=== PATIENT | male | born 1960 | race Two or more races ===

== ENCOUNTER 2020-03-05 15:28 | Emergency (ER) | payer MEDICARE, OTHER ==
[~2020-03-05] VITALS: Ht 165.1 cm; Wt 85.0 kg
[2020-03-05] MEDS ORDERED: LABETALOL HCL 20MG/4ML CARPUJECT IV ONE (16:15)
[2020-03-05] MEDS ORDERED: LABETALOL 5MG/ML SYR 20 MG/4 ML SYRINGE IV NR (16:30)
[2020-03-05 16:34] LABS: BASOPHILS % 0.8 % (0.0-2.0); EOSINOPHILS % 3.9 % (0.0-5.0); HEMATOCRIT. 33.2 % (42.0-52.0); HEMOGLOBIN. 11.7 g/dL (14.0-18.0); LYMPHOCYTES % 24.6 % (20.0-50.0); MEAN CORPUSCULAR HEMOGLOBIN 30.6 pg (28.0-32.0); MEAN CORPUSCULAR VOLUME 86.8 fL (80.0-94.0); MEAN PLATELET VOLUME 8.2 fl (7.4-10.4); NEUTROPHILS % 60.7 % (40.0-76.0); PLATELET 231 x1000/uL (130-400); RED BLOOD CELL COUNT 3.83 mill/uL (4.7-6.1); RED CELL DISTRIBUTION WIDTH 14.2 % (11.6-14.6)
[2020-03-05 16:37] LABS: CHLORIDE 101 mEq/L (98-107)
[2020-03-05] MEDS ORDERED: LABETALOL HCL 100MG TABLET PO ONE (17:15)
[2020-03-05 17:32] VITALS: BP 168/78
== END 2020-03-05 17:34 | disposition home or self-care (01) ==
LOC: ER 15:28
DX: I16.0 Hypertensive urgency (principal); I12.0 Hypertensive chronic kidney disease with stage 5 chronic kidney disease or end stage renal disease; N18.6 End stage renal disease; Z99.2 Dependence on renal dialysis; Z89.511 Acquired absence of right leg below knee; Z98.890 Other specified postprocedural states
CPT/HCPCS: 36415; 80053; 83880; 84484; 85025; 93005; 96374; 99284; J3490

== ENCOUNTER 2021-04-02 22:53 | Emergency (ER) | payer MEDICARE, OTHER ==
[~2021-04-02] VITALS: Ht 165.1 cm; Wt 85.0 kg
[2021-04-02 23:37] VITALS: BP 107/48
== END 2021-04-03 03:08 | disposition left against medical advice (07) ==
LOC: ER 22:53
DX: R50.9 Fever, unspecified (principal); Z53.21 Procedure and treatment not carried out due to patient leaving prior to being seen by health care provider

== ENCOUNTER 2021-05-22 23:21 | Emergency (ER) | payer BC, OTHER ==
[~2021-05-22] VITALS: Ht 165.1 cm; Wt 85.0 kg
[2021-05-23 03:01] VITALS: BP 136/68
== END 2021-05-23 03:04 | disposition home or self-care (01) ==
LOC: ER 23:21
DX: I10 Essential (primary) hypertension (principal); E11.9 Type 2 diabetes mellitus without complications; N28.9 Disorder of kidney and ureter, unspecified
CPT/HCPCS: 82962; 99283

== ENCOUNTER 2021-11-01 14:32 | Emergency (ER) | payer MEDICARE, BC ==
[~2021-11-01] VITALS: Ht 175.3 cm; Wt 77.0 kg
[2021-11-01 15:50] LABS: BASOPHILS % 0.5 % (0.0-2.0); EOSINOPHILS % 2.3 % (0.0-5.0); HEMATOCRIT. 30.3 % (42.0-52.0); HEMOGLOBIN. 10.7 g/dL (14.0-18.0); LYMPHOCYTES % 14.2 % (20.0-50.0); MEAN CORPUSCULAR HEMOGLOBIN 31.3 pg (28.0-32.0); MEAN CORPUSCULAR VOLUME 88.9 fL (80.0-94.0); MEAN PLATELET VOLUME 7.2 fl (7.4-10.4); MONOCYTES % 8.9 % (2.0-8.0); NEUTROPHILS % 74.1 % (40.0-76.0); PLATELET 251 x1000/uL (130-400); RED CELL DISTRIBUTION WIDTH 14.7 % (11.6-14.6)
[2021-11-01 16:00] LABS: CHLORIDE 105 mEq/L (98-107)
[2021-11-01 18:14] LABS: CLARITY URINE CLEAR (CLEAR); COLOR URINE YELLOW (YELLOW); KETONES URINE NEGATIVE (NEGATIVE); LEUKOCYTE ESTERASE URINE NEGATIVE (NEGATIVE); NITRITE URINE NEGATIVE (NEGATIVE); OCCULT BLOOD URINE NEGATIVE (NEGATIVE); PROTEIN URINE 2+ (NEGATIVE); SPECIFIC GRAVITY URINE 1.013 (1.005-1.030); UROBILINOGEN URINE 0.2 E.U./dL (0.2-1.0)
[2021-11-01 19:10] VITALS: BP 139/71
== END 2021-11-01 19:11 | disposition home or self-care (01) ==
LOC: ER 14:32
DX: R53.1 Weakness (principal); I12.0 Hypertensive chronic kidney disease with stage 5 chronic kidney disease or end stage renal disease; E11.22 Type 2 diabetes mellitus with diabetic chronic kidney disease; N18.6 End stage renal disease; Z99.2 Dependence on renal dialysis; Z89.9 Acquired absence of limb, unspecified
CPT/HCPCS: 36415; 71045; 80053; 81003; 83880; 84484; 85025; 93005; 99285

== ENCOUNTER 2022-01-15 12:48 | Emergency (ER) | payer MEDICARE, OTHER ==
[~2022-01-15] VITALS: Ht 177.8 cm; Wt 85.0 kg
[2022-01-15 13:14] VITALS: BP 161/76
[2022-01-15] MEDS ORDERED: ACETAMINOPHEN 325MG TABLET PO ONE (13:15)
[2022-01-15] MEDS ORDERED: MECLIZINE 25MG TABLET PO ONE (13:15)
[2022-01-15 14:00] LABS: BASOPHILS % 0.5 % (0.0-2.0); EOSINOPHILS % 2.5 % (0.0-5.0); HEMATOCRIT. 33.7 % (42.0-52.0); HEMOGLOBIN. 11.5 g/dL (14.0-18.0); LYMPHOCYTES % 16.9 % (20.0-50.0); MEAN CORPUSCULAR HEMOGLOBIN 30.1 pg (28.0-32.0); MEAN CORPUSCULAR VOLUME 87.9 fL (80.0-94.0); MEAN PLATELET VOLUME 8.1 fl (7.4-10.4); MONOCYTES % 8.4 % (2.0-8.0); NEUTROPHILS % 71.7 % (40.0-76.0); PLATELET 255 x1000/uL (130-400); RED BLOOD CELL COUNT 3.83 mill/uL (4.7-6.1); RED CELL DISTRIBUTION WIDTH 13.7 % (11.6-14.6)
[2022-01-15 14:06] LABS: CHLORIDE 99 mEq/L (98-107)
[2022-01-15] MEDS ORDERED: MECL-159 MT (15:02)
== END 2022-01-15 15:20 | disposition home or self-care (01) ==
LOC: ER 12:48 → SUPCPDRO 16:11
DX: R55 Syncope and collapse (principal); R42 Dizziness and giddiness; D64.9 Anemia, unspecified; E11.9 Type 2 diabetes mellitus without complications; I10 Essential (primary) hypertension; Z98.890 Other specified postprocedural states
CPT/HCPCS: 36415; 70450; 71045; 80053; 83880; 84484; 85025; 93005; 99285; J8597

== ENCOUNTER 2022-03-28 13:12 | Emergency (ER) | payer MEDICARE ==
[~2022-03-28] VITALS: Ht 167.6 cm; Wt 75.0 kg
[~2022-03-28 13:12] MED LIST: MECL-159 MT
[2022-03-28 13:24] VITALS: BP 188/95
== END 2022-03-28 18:22 | disposition left against medical advice (07) ==
LOC: ER 13:12
DX: Z53.21 Procedure and treatment not carried out due to patient leaving prior to being seen by health care provider (principal); I12.0 Hypertensive chronic kidney disease with stage 5 chronic kidney disease or end stage renal disease; E11.22 Type 2 diabetes mellitus with diabetic chronic kidney disease; N18.6 End stage renal disease; Z99.2 Dependence on renal dialysis; Z89.9 Acquired absence of limb, unspecified

== ENCOUNTER 2023-08-06 11:32 | Emergency (ER) | payer MEDICARE ==
[~2023-08-06] VITALS: Ht 172.7 cm; Wt 73.0 kg
[~2023-08-06 11:32] MED LIST changes: -MECL-159 MT; +MECL-299 MT
[2023-08-06 11:51] VITALS: O2SAT 100
[2023-08-06] MEDS ORDERED: LIDOCAINE HCL/PF 1% 10 MG/ML 5ML VIAL INFIL ONE (13:00)
[2023-08-06 16:02] VITALS: BP 214/93; PULSE 69; RESP 19; TEMP 98.1
== END 2023-08-06 16:06 | disposition home or self-care (01) ==
LOC: ER 11:37
DX: T82.838A Hemorrhage due to vascular prosthetic devices, implants and grafts, initial encounter (principal)
CPT/HCPCS: 99283; J3490

== ENCOUNTER 2024-04-22 09:29 | Inpatient (IN) | payer MEDICARE, OTHER ==
[~2024-04-22] VITALS: Ht 165.1 cm; Wt 80.3 kg
[2024-04-22 10:17] LABS: BASOPHILS % 0.4 % (0.0-2.0); EOSINOPHILS % 1.9 % (0.0-5.0); HEMATOCRIT. 33.6 % (42.0-52.0); HEMOGLOBIN. 11.2 g/dL (14.0-18.0); LYMPHOCYTES % 11.5 % (20.0-50.0); MEAN CORPUSCULAR HEMOGLOBIN 29.9 pg (28.0-32.0); MEAN CORPUSCULAR HGB CONC 33.4 g/dL (31.0-37.0); MEAN CORPUSCULAR VOLUME 89.5 fL (80.0-94.0); MEAN PLATELET VOLUME 7.8 fl (7.4-10.4); MONOCYTES % 9.2 % (2.0-8.0); PLATELET 209 x1000/uL (130-400); RED BLOOD CELL COUNT 3.75 mill/uL (4.7-6.1); RED CELL DISTRIBUTION WIDTH 15.8 % (11.6-14.6); WHITE BLOOD COUNT 7.5 x1000/uL (4.5-11.0)
[2024-04-22 10:27] LABS: CHLORIDE 105 mEq/L (98-107); POTASSIUM 3.7 mEq/L (3.5-5.1); SODIUM 142 mEq/L (136-145)
[2024-04-22 10:28] LABS: CALCIUM 9.5 mg/dL (8.7-10.4); CARBON DIOXIDE 29 mEq/L (21-32)
[2024-04-22 10:33] LABS: CREATININE 3.2 mg/dL (0.6-1.3); GLUCOSE 184 mg/dL (70-105); UREA NITROGEN BLOOD 14 mg/dL (9-23)
[2024-04-22 11:50] LABS: TROPONIN I HIGH SENSITIVITY 13 ng/L (3.0-53)
[2024-04-22] MEDS ORDERED: ATEN50TA PO (12:14)
[2024-04-22] MEDS ORDERED: NIFE-32 PO (12:14)
[2024-04-22] MEDS ORDERED: PRAV40TA58 PO (12:14)
[2024-04-22] MEDS ORDERED: MAGNESIUM/ALUMINUM HYDROXIDE/SIMETHICONE 30ML UDC PO PRN (12:15)
[2024-04-22] MEDS ORDERED: IPRATROPIUM/ALBUTEROL 0.5-3(2.5)MG/3ML NEB HHN PRN (12:15)
[2024-04-22] MEDS ORDERED: GUAIFENESIN 200MG/10ML SUGAR FREE UDC PO PRN (12:15)
[2024-04-22] MEDS ORDERED: ACETAMINOPHEN 325MG TABLET PO PRN (12:15)
[2024-04-22] MEDS ORDERED: ONDANSETRON HCL 4MG/2ML INJ IV PRN (12:15)
[2024-04-22] MEDS: NIFEDIPINE XL 60MG TAB PO SCH (13:10)
[2024-04-22] MEDS: ATENOLOL 50 MG TABLET PO SCH (13:11)
[2024-04-22] MEDS ORDERED: DEXTROSE 50% WATER 50ML SYRINGE IV PRN (14:00)
[2024-04-22] MEDS: BLOOD SUGAR DIAGNOSTIC STRIP TEST SCH (17:00)
[2024-04-22] MEDS: INSULIN LISPRO 100 UNITS/ML SUBCUT SCH (18:20)
[2024-04-22] MEDS: ATORVASTATIN CALCIUM 40MG TABLET PO SCH (21:00)
[2024-04-22 23:00] VITALS: BP 132/67; PULSE 74; RESP 18; TEMP 37.0296
[2024-04-23 07:49] LABS: BASOPHILS % 0.5 % (0.0-2.0); EOSINOPHILS % 3.1 % (0.0-5.0); HEMATOCRIT. 32.5 % (42.0-52.0); HEMOGLOBIN. 11.2 g/dL (14.0-18.0); LYMPHOCYTES % 20.4 % (20.0-50.0); MEAN CORPUSCULAR HEMOGLOBIN 30.9 pg (28.0-32.0); MEAN CORPUSCULAR HGB CONC 34.6 g/dL (31.0-37.0); MEAN CORPUSCULAR VOLUME 89.2 fL (80.0-94.0); MEAN PLATELET VOLUME 8.1 fl (7.4-10.4); MONOCYTES % 9.4 % (2.0-8.0); NEUTROPHILS % 66.6 % (40.0-76.0); PLATELET 238 x1000/uL (130-400); RED BLOOD CELL COUNT 3.64 mill/uL (4.7-6.1); RED CELL DISTRIBUTION WIDTH 16.1 % (11.6-14.6); WHITE BLOOD COUNT 7.7 x1000/uL (4.5-11.0)
[2024-04-23 08:00] VITALS: BP 163/71; PULSE 68; RESP 16; TEMP 36.61404; O2SAT 97
[2024-04-23 08:04] LABS: CALCIUM 9.5 mg/dL (8.7-10.4); POTASSIUM 4.2 mEq/L (3.5-5.1)
[2024-04-23 08:08] LABS: T4 FREE 1.46 ng/dL (0.89-1.76); THYROID STIMULATING HORMONE 1.94 uIU/mL (0.55-4.78)
[2024-04-23 08:09] LABS: ALBUMIN 4.4 g/dL (3.2-4.8)
[2024-04-23 08:23] LABS: CREATININE 5.5 mg/dL (0.6-1.3)
[2024-04-23] MEDS: DOCUSATE SODIUM 100MG CAPSULE PO PRN (10:17)
[2024-04-23 12:00] VITALS: BP 122/65; PULSE 80; RESP 17; TEMP 36.61404; O2SAT 98
[2024-04-23 12:29] LABS: ALANINE AMINOTRANSFERASE 14 IU/L (10-49); ALBUMIN 4.5 g/dL (3.2-4.8); ASPARTATE AMINOTRANSFERASE 21 IU/L (<34); BILIRUBIN TOTAL 0.3 mg/dL (0.1-1.0); PROTEIN TOTAL 7.4 g/dL (6.0-8.3)
[2024-04-23 12:39] LABS: BILIRUBIN DIRECT < 0.1 mg/dL (<=3.0)
[2024-04-23 12:40] LABS: HEPATITIS B SURFACE ANTIGEN NEGATIVE (Negative)
[2024-04-23 13:00] LABS: HEPATITIS A AB IGM NEGATIVE (Negative)
[2024-04-23 13:01] LABS: HEPATITIS B CORE AB IGM NEGATIVE (Negative); HEPATITIS C AB NON REACTIVE (Neg) (Negative)
[2024-04-23 20:00] VITALS: BP 142/68; PULSE 68; TEMP 36.44736; O2SAT 98
[2024-04-23 21:02] LABS: PHOSPHORUS 3.5 mg/dL (2.5-4.9)
[2024-04-24] VITALS (14 sets, daily range): BP systolic 139–178; BP diastolic 59–90; PULSE 55–90; RESP 16–20; TEMP 36.3918–36.89184; O2SAT 96–100
[2024-04-24] MEDS: CLONIDINE 0.1MG TABLET PO PRN (00:21)
[2024-04-24 06:44] LABS: BASOPHILS % 0.5 % (0.0-2.0); HEMATOCRIT. 31.6 % (42.0-52.0); HEMOGLOBIN. 10.6 g/dL (14.0-18.0); LYMPHOCYTES % 23.6 % (20.0-50.0); MEAN CORPUSCULAR HEMOGLOBIN 30.1 pg (28.0-32.0); MEAN CORPUSCULAR HGB CONC 33.6 g/dL (31.0-37.0); MEAN CORPUSCULAR VOLUME 89.6 fL (80.0-94.0); MEAN PLATELET VOLUME 8.2 fl (7.4-10.4); MONOCYTES % 9.7 % (2.0-8.0); NEUTROPHILS % 63.2 % (40.0-76.0); PLATELET 227 x1000/uL (130-400); RED BLOOD CELL COUNT 3.53 mill/uL (4.7-6.1); RED CELL DISTRIBUTION WIDTH 15.7 % (11.6-14.6); WHITE BLOOD COUNT 8.6 x1000/uL (4.5-11.0)
[2024-04-24 06:47] LABS: POTASSIUM 5.3 mEq/L (3.5-5.1)
[2024-04-24 06:48] LABS: CALCIUM 9.2 mg/dL (8.7-10.4)
[2024-04-24 06:58] LABS: CREATININE 6.9 mg/dL (0.6-1.3)
[2024-04-24] MEDS ORDERED: HYDRALAZINE 20MG/ML VIAL IV PRN (10:30)
[2024-04-24] MEDS ORDERED: MINO10TA2 PO (15:47)
[2024-04-24] MEDS ORDERED: MINOXIDIL 10MG TABLET PO SCH (21:00)
== END 2024-04-24 20:28 | disposition home or self-care (01) | DRG 308 ==
LOC: ER 10:14 → 5WST 11:04 → EDBEDREQ 11:07 → 7EST 23:13
PROVIDERS: ADMIT Hospitalist; ATTEND Hospitalist
PROC: 5A1D70Z Performance of Urinary Filtration, Intermittent, Less than 6 Hours Per Day (ICD-10-PCS; principal; 2024-04-24)
DX: I48.0 Paroxysmal atrial fibrillation (principal); N18.6 End stage renal disease; I12.0 Hypertensive chronic kidney disease with stage 5 chronic kidney disease or end stage renal disease; I51.7 Cardiomegaly; E11.22 Type 2 diabetes mellitus with diabetic chronic kidney disease; E78.5 Hyperlipidemia, unspecified; D63.1 Anemia in chronic kidney disease; E83.39 Other disorders of phosphorus metabolism; K59.00 Constipation, unspecified; Z89.511 Acquired absence of right leg below knee; Z97.13 Presence of artificial right leg (complete) (partial); Z99.2 Dependence on renal dialysis
CPT/HCPCS: 36415; 71045; 80048; 80061; 80076; 82040; 82962; 83036; 83735; 84100; 84439; 84443; 84484; 85025; 86705; 86709; 87340; 90935; 93005; 93306; 99285; J1815

== ENCOUNTER 2025-01-11 08:07 | Inpatient (IN) | payer MEDICARE, OTHER ==
[~2025-01-11] VITALS: Ht 167.6 cm; Wt 73.0 kg
[~2025-01-11 08:07] MED LIST changes: +ATEN50TA PO; +MINO10TA2 PO; +NIFE-32 PO; +PRAV40TA58 PO
[2025-01-11 08:10] VITALS: O2SAT 97
[2025-01-11] MEDS: LEVETIRACETAM 500MG PREMIX 100 ML IV ONE ×2 (08:53→08:54)
[2025-01-11 09:10] LABS: BASOPHILS % 0.5 % (0.0-2.0); EOSINOPHILS % 1.6 % (0.0-5.0); HEMATOCRIT. 33.6 % (42.0-52.0); HEMOGLOBIN. 11.5 g/dL (14.0-18.0); LYMPHOCYTES % 9.7 % (20.0-50.0); MEAN CORPUSCULAR HEMOGLOBIN 28.1 pg (28.0-32.0); MEAN CORPUSCULAR HGB CONC 34.2 g/dL (31.0-37.0); MEAN CORPUSCULAR VOLUME 82.1 fL (80.0-94.0); MEAN PLATELET VOLUME 7.6 fl (7.4-10.4); MONOCYTES % 7.5 % (2.0-8.0); NEUTROPHILS % 80.7 % (40.0-76.0); PLATELET 209 x1000/uL (130-400); RED BLOOD CELL COUNT 4.09 mill/uL (4.7-6.1); WHITE BLOOD COUNT 6.8 x1000/uL (4.5-11.0)
[2025-01-11 09:17] LABS: CHLORIDE 95 mEq/L (98-107); POTASSIUM 3.3 mEq/L (3.5-5.1); SODIUM 137 mEq/L (136-145)
[2025-01-11 09:18] LABS: CALCIUM 9.6 mg/dL (8.7-10.4); CARBON DIOXIDE 32 mEq/L (21-32)
[2025-01-11 09:23] LABS: GLUCOSE 197 mg/dL (70-105); UREA NITROGEN BLOOD 28 mg/dL (9-23)
[2025-01-11 09:25] LABS: ALANINE AMINOTRANSFERASE 19 IU/L (10-49); ALBUMIN 4.8 g/dL (3.2-4.8); ASPARTATE AMINOTRANSFERASE 19 IU/L (<34); BILIRUBIN TOTAL 0.4 mg/dL (0.1-1.0); PROTEIN TOTAL 7.7 g/dL (6.0-8.3)
[2025-01-11 09:47] LABS: CREATININE 4.1 mg/dL (0.6-1.3)
[2025-01-11] MEDS ORDERED: LACTATED RINGERS 1,000 ML IV SCH (11:15)
[2025-01-11] MEDS ORDERED: ONDANSETRON HCL 4MG/2ML INJ IV PRN (11:45)
[2025-01-11] MEDS ORDERED: ACETAMINOPHEN 325MG TABLET PO PRN (11:45)
[2025-01-11] MEDS ORDERED: MECLIZINE 25MG TABLET PO PRN (11:45)
[2025-01-11] MEDS ORDERED: HYDROCODONE/ACETAMINOPHEN 5/325MG TABLET PO PRN (11:45)
[2025-01-11] MEDS ORDERED: CLONIDINE 0.1MG TABLET PO PRN (11:45)
[2025-01-11] MEDS ORDERED: MORPHINE SULFATE 4 MG/ML INJ (FOR IV/IM USE) IV PRN (13:00)
[2025-01-11] MEDS ORDERED: LORAZEPAM 2MG/ML UD SYRINGE IV PRN (13:00)
[2025-01-11] MEDS ORDERED: NALOXONE HCL 0.4MG/ML VIAL IV PRN (13:15)
[2025-01-11 13:16] VITALS: BP 112/55; PULSE 79; RESP 12; TEMP 34.4; O2SAT 100
[2025-01-11 16:56] LABS: HEPATITIS B SURFACE ANTIGEN NEGATIVE (Negative)
[2025-01-11] MEDS ORDERED: CALC667T6 MT (17:11)
[2025-01-11] MEDS ORDERED: ATEN50TA MT (17:11)
[2025-01-11] MEDS ORDERED: SEVE800T8 MT (17:11)
[2025-01-11] MEDS ORDERED: DOCU-405 MT (17:11)
[2025-01-11] MEDS ORDERED: NIFE-32 MT (17:11)
[2025-01-11] MEDS ORDERED: LACT10SO81 MT (17:11)
[2025-01-11] MEDS ORDERED: FOLI0.8T53 MT (17:11)
[2025-01-11] MEDS ORDERED: MINO10TA MT (17:11)
[2025-01-11] MEDS ORDERED: PRAV40TA58 MT (17:11)
[2025-01-11 17:15] VITALS: BP 90/45; PULSE 63
[2025-01-11 17:17] LABS: HEPATITIS C AB NON REACTIVE (Neg) (Negative)
[2025-01-11] MEDS: NIFEDIPINE XL 60MG TAB PO SCH (17:18)
[2025-01-11] MEDS: ATENOLOL 50 MG TABLET PO SCH (17:18)
[2025-01-11 17:22] VITALS: BP 106/54; PULSE 63
[2025-01-11 20:00] VITALS: BP 88/51; PULSE 65; RESP 18; TEMP 36.5; O2SAT 96
[2025-01-11 20:28] VITALS: BP 91/55; PULSE 65
[2025-01-11] MEDS ORDERED: ZOLPIDEM TARTRATE 5MG TABLET PO PRN (21:00)
[2025-01-11] MEDS ORDERED: LEVETIRACETAM 500MG in NACL 100ML PREMIX IV SCH (21:00)
[2025-01-11] MEDS: LEVETIRACETAM 500MG PREMIX 100 ML IV SCH (21:12)
[2025-01-11] MEDS: ATORVASTATIN CALCIUM 40MG TABLET PO SCH (21:16)
[2025-01-11] MEDS: MINOXIDIL 10MG TABLET PO SCH (21:16)
[2025-01-12] VITALS: BP 93/45; PULSE 76; RESP 18; TEMP 36.6; O2SAT 98
[2025-01-12 04:00] VITALS: PULSE 90; RESP 18; TEMP 36.3; O2SAT 97
[2025-01-12 06:34] LABS: BASOPHILS % 0.5 % (0.0-2.0); EOSINOPHILS % 2.9 % (0.0-5.0); HEMATOCRIT. 31.3 % (42.0-52.0); HEMOGLOBIN. 10.8 g/dL (14.0-18.0); LYMPHOCYTES % 27.6 % (20.0-50.0); MEAN CORPUSCULAR HEMOGLOBIN 28.5 pg (28.0-32.0); MEAN CORPUSCULAR HGB CONC 34.4 g/dL (31.0-37.0); MEAN CORPUSCULAR VOLUME 82.9 fL (80.0-94.0); MEAN PLATELET VOLUME 7.9 fl (7.4-10.4); MONOCYTES % 10.1 % (2.0-8.0); NEUTROPHILS % 58.9 % (40.0-76.0); PLATELET 195 x1000/uL (130-400); RED BLOOD CELL COUNT 3.77 mill/uL (4.7-6.1); RED CELL DISTRIBUTION WIDTH 17.8 % (11.6-14.6); WHITE BLOOD COUNT 5.7 x1000/uL (4.5-11.0)
[2025-01-12 07:03] LABS: CALCIUM 9.1 mg/dL (8.7-10.4); POTASSIUM 4.2 mEq/L (3.5-5.1)
[2025-01-12 07:23] LABS: CREATININE 6.5 mg/dL (0.6-1.3)
[2025-01-12 08:00] VITALS: BP 122/65; PULSE 66; RESP 16; TEMP 36.1; O2SAT 99
[2025-01-12] MEDS: PANTOPRAZOLE SODIUM 40 MG/VIAL IV SCH (09:58)
[2025-01-12 12:00] VITALS: BP 131/72; PULSE 58; RESP 18; TEMP 36.6; O2SAT 98
[2025-01-12 16:00] VITALS: BP 129/66; PULSE 54; RESP 18; TEMP 36.4; O2SAT 99
[2025-01-12 20:00] VITALS: BP 101/52; PULSE 60; RESP 16; TEMP 36.3; O2SAT 95
[2025-01-13] VITALS (10 sets, daily range): BP systolic 98–167; BP diastolic 50–67; PULSE 57–73; RESP 16–20; TEMP 36.4–37.1; O2SAT 95–98
[2025-01-13 06:18] LABS: BASOPHILS % 0.6 % (0.0-2.0); EOSINOPHILS % 3.3 % (0.0-5.0); HEMATOCRIT. 30.5 % (42.0-52.0); HEMOGLOBIN. 10.5 g/dL (14.0-18.0); LYMPHOCYTES % 24.8 % (20.0-50.0); MEAN CORPUSCULAR HEMOGLOBIN 28.4 pg (28.0-32.0); MEAN CORPUSCULAR HGB CONC 34.4 g/dL (31.0-37.0); MEAN CORPUSCULAR VOLUME 82.5 fL (80.0-94.0); MEAN PLATELET VOLUME 7.9 fl (7.4-10.4); MONOCYTES % 11.7 % (2.0-8.0); NEUTROPHILS % 59.6 % (40.0-76.0); PLATELET 190 x1000/uL (130-400); RED CELL DISTRIBUTION WIDTH 18.2 % (11.6-14.6); WHITE BLOOD COUNT 5.9 x1000/uL (4.5-11.0)
[2025-01-13 06:47] LABS: POTASSIUM 4.2 mEq/L (3.5-5.1)
[2025-01-13 06:48] LABS: CALCIUM 9.3 mg/dL (8.7-10.4)
[2025-01-13 07:29] LABS: CREATININE 8.4 mg/dL (0.6-1.3)
[2025-01-13] MEDS ORDERED: KEPP500 MT (11:31)
== END 2025-01-13 21:00 | disposition home or self-care (01) | DRG 100 ==
LOC: ER 08:14 → 5WST 11:18 → EDBEDREQ 11:24 → ENRESERV 12:32
PROVIDERS: ADMIT Internal Medicine; ATTEND Internal Medicine
PROC: 4A10X4Z Monitoring of Central Nervous Electrical Activity, External Approach (ICD-10-PCS; principal; 2025-01-13)
PROC: 5A1D70Z Performance of Urinary Filtration, Intermittent, Less than 6 Hours Per Day (ICD-10-PCS; 2025-01-13)
DX: G40.909 Epilepsy, unspecified, not intractable, without status epilepticus (principal); N18.6 End stage renal disease; I12.0 Hypertensive chronic kidney disease with stage 5 chronic kidney disease or end stage renal disease; E78.5 Hyperlipidemia, unspecified; E87.6 Hypokalemia; D64.9 Anemia, unspecified; E11.22 Type 2 diabetes mellitus with diabetic chronic kidney disease; Z99.2 Dependence on renal dialysis; Z97.13 Presence of artificial right leg (complete) (partial)
CPT/HCPCS: 36415; 70551; 80048; 80053; 82962; 83036; 85025; 86705; 87340; 90935; 93005; 93306; 93970; 95816; 99285; J1953; J2470